=== PATIENT | female | born 1970 | race Caucasian/White ===

== ENCOUNTER 2023-12-19 11:56 | Outpatient (CLI) | payer BC, SELFPAY | END 2023-12-19 11:57 | disposition home or self-care (01) | LOC: NFLDREF 01-05 11:57 | PROVIDERS: Visit Provider Nurse Practitioner Family | DX: N30.90 Cystitis, unspecified without hematuria (principal); R30.0 Dysuria; R39.15 Urgency of urination | CPT/HCPCS: 87086; 87186 ==